=== PATIENT | male | born 1960 | race Caucasian/White ===

== ENCOUNTER 2019-07-26 17:40 | Inpatient (IN) | payer MEDICARE, OTHER ==
[~2019-07-26] VITALS: Ht 185.4 cm; Wt 102.1 kg
[~2019-07-26 17:40] MED LIST: ACETAMINOPHEN-1 EAC1 PO; CIPROFLOXACIN750 MG PO; DUONEB 2.5-0.5 M3 ML INH; FLAGYL500 MG PO; FLEXERIL PO; NEBULIZER MISCELL; NORCO 7.5-3251 EACH PO; SERTRALINE HCL50 MG PO; VENTOLIN HFA 1818 GM INH
[2019-07-26 17:45] VITALS: BP 137/89
[2019-07-26] MEDS ORDERED: SERTRALINE HCL100 MG PO (18:17)
[2019-07-26] MEDS ORDERED: MINIPRESS2 MG PO (18:17)
[2019-07-26] MEDS ORDERED: CLONAZEPAM 0.50.5 M1 PO (18:17)
[2019-07-26 18:26] LABS: ABSOLUTE EOSINOPHILS 0.2 thou/uL (0.0-0.7); ABSOLUTE LYMPHOCYTES 1.4 thou/uL (0.8-5.3); ABSOLUTE MONOCYTES 0.3 thou/uL (0.0-1.2); ABSOLUTE NEUTROPHILS 4.6 thou/uL (1.6-8.1); BASOPHILS 0.7 %; EOSINOPHILS 2.8 %; HEMATOCRIT 43.8 % (42.0-52.0); HEMOGLOBIN 15.3 gm/dL (14.0-18.0); LYMPHOCYTES 21.9 %; MCH 29.4 pg (26.0-34.0); MCHC 34.8 g/dL (28.0-37.0); MCV 84.6 fL (80.0-100.0); MONOCYTES 3.8 %; MPV 8.5 fl. (7.2-11.1); NUCLEATED RBCS 0 /100WBC; PLATELET COUNT* 144 thou/uL (150-400); POLYS 70.8 %; RBC 5.18 mil/uL (4.50-6.00); RDW-CV 14.1 % (10.5-14.5); WBC 6.6 thou/uL (4.0-11.0)
--- NOTE | 2019-07-26 18:30 | NUR ---
DR CELESTIN NEUROLOGY HERE AT BEDSIDE EXAMING PT
[2019-07-26 18:34] LABS: CALCIUM 8.4 mg/dL (8.5-10.1); CREATININE 1.1 mg/dL (0.6-1.3); POTASSIUM 3.6 mmol/L (3.5-5.1)
[2019-07-26 18:39] LABS: ALBUMIN 3.7 g/dL (3.4-5.0); TOTAL BILIRUBIN 0.8 mg/dL (<0.1-1.0); TOTAL PROTEIN 6.9 g/dL (6.4-8.2)
[2019-07-26 19:49] LABS: URINE BILIRUBIN NEGATIVE (Negative); URINE BLOOD NEGATIVE (Negative); URINE CLARITY CLEAR; URINE COLOR YELLOW; URINE GLUCOSE-RANDOM NEGATIVE (Negative); URINE KETONES NEGATIVE (Negative); URINE LEUKOCYTES NEGATIVE (Negative); URINE NITRITE NEGATIVE (Negative); URINE PROTEIN NEGATIVE (Negative); URINE SPECIFIC GRAVITY 1.015 (1.005-1.030); URINE UROBILINOGEN 0.2 E.U./dl (0.2-1.0)
--- NOTE | 2019-07-26 21:30 | NUR ---
PT ON MRI TABLE UNALBLE TO DO TEMPERATUREE AND NIH SCALE FOR THIS SET OF VS.
[2019-07-26 23:15] VITALS: BP 161/84
[2019-07-26 23:40] VITALS: BP 162/90
[2019-07-27] VITALS (45 sets, daily range): BP systolic 114–168; BP diastolic 64–119
--- NOTE | 2019-07-27 09:50 | NUR ---
UPDATED ON PLAN OF CARE.
--- NOTE | 2019-07-27 11:05 | NUR ---
PATIENT C/O LYNN EARLY THIS AM TO NIGHT RN. LABETOLOL GIVEN. PATIENT SAID LYNN IMPROVED 1-2. DENIES EVER HAVING HEADACHES BUT SAYS HE TAKES EXCEDRIN IF HE DOES. HE THOUGHT COFFEE WOULD HELP AND WAS CONCERNED IT WAS BECAUSE HE HADN'T TAKEN HIS MINIPRESS. COFFEE GIVEN. LYNN NO CHANGE BUT CONTINUES TO SAY IT IS VERY MINOR. DR. CELESTIN NOTIFIED. PATIENT LEFT FOR MRI AT 1105.
--- NOTE | 2019-07-27 11:45 | NUR ---
RETURNED FROM MRI. AT 1230 CALLED MRI TO ASK ABOUT RESULTS. DR. CELESTIN CALLED AT 1235. NO RESULTS AT THIS TIME.
--- NOTE | 2019-07-27 12:43 | EKG ---
[place] [address] ELECTROCARDIOGRAM REPORT Name: AB HUNTER Room: [address] ADM IN .R.#: [id number] Admission: 07/26/19 Attend Phys: Bucky Mclaughlin, Discharge: Date of : 60 Date of Service: 07/26/19 1816 Report #: [id number] THIS REPORT FOR: //name// [facility] ED Test Date: 2019-07-26 Test Time: 18:16:42 Pat Name: AB HUNTER Department: Room: [facility] Gender: M Attendant [employer]: RS : 1960 Requested By: Roland Bailey Order Number: [id number] MD: David Beckwith Measurements Intervals [place] Rate: 63 P: 68 NV: 181 QRS: 66 QRSD: 102 T: 90 QT: 416 QTc: 426 Interpretive Statements Sinus rhythm Nonspecific T abnormalities, lateral leads Compared to ECG 08/18/2013 18:16:59 T-wave abnormality now present Electronically Signed On 07-27-2019 12:42:41 CDT by David Beckwith [email or web address] <ELECTRONICALLY SIGNED> By: David Beckwith MD, FACC 07/27/19 1242 1816 1816 David Beckwith MD, [facility] /EPI
--- NOTE | 2019-07-27 13:24 | 2DMMODE ---
[place] [address] 2 D/M-MODE ECHOCARDIOGRAM Name: AB HUNTER Room: [address] ADM IN .R.#: [id number] Admission: 07/26/19 Attend Phys: Bucky Mclaughlin, Discharge: Date of : 60 Date of Service: 07/27/19 1322 Report #: [id number] THIS REPORT FOR: cc: FAM - No family physician/PCP FAM - No family physician/PCP Michael Cross MD [facility] ~ APPROVED REPORT Study performed: 07/27/2019 10:11:41 EXAM: Comprehensive 2D, Doppler, and color-flow Echocardiogram Patient Location: In-Patient Room #: [facility] [place] Status: routine BSA: 2.26 HR: 60 bpm BP: 160/97 mmHg Rhythm: NSR Other Information Study Quality: Good Indications CVA/TIA Echo Enhancing Agent Indication: Rule out Shunt Agent(s) / Amount(s) Used: Agitated Saline 10 cc 2D Dimensions IVSd: 12.30 (7-11mm) LVOT Diam: 22.89 (18-24mm) LVDd: 46.51 mm PWd: 9.92 (7-11mm) Ascending Ao: 37.79 (22-36mm) LVDs: 28.60 (25-40mm) Aortic Root: 41.06 mm Volumes Left Atrial Volume (Systole) LA ESV Index: 26.70 mL/m2 Aortic Valve AoV Peak Austin.: 1.30 m/s AO Peak Gr.: 6.78 mmHg LVOT Max P.91 mmHg AO Mean Gr.: 3.60 mmHg LVOT Mean P.62 [place] [address] 2 D/M-MODE ECHOCARDIOGRAM Name: AB HUNTER Room: [address] IN .R.#: [id number] Admission: 07/26/19 Attend Phys: Bucky Mclaughlin, Discharge: Date of : 60 Date of Service: 07/27/19 1322 Report #: [id number] LVOT Max V: 1.31 m/s AO V2 VTI: 26.61 cm LVOT Mean V: 0.72 m/s MATHEW (VTI): 4.01 cm2 LVOT V1 VTI: 25.91 cm Mitral Valve E/A Ratio: 1.05 MV Decel. Time: 217.55 ms MV E Max Austin.: 0.81 m/s MV PHT: 63.09 ms MVA (PHT): 3.49 cm2 TDI E/Lateral E': 7.36 E/Medial E': 6.75 Medial E' Austin.: 0.12 m/s Lateral E' Austin.: 0.11 m/s Pulmonary Valve PV Peak Austin.: 0.96 m/s PV Peak Gr.: 3.71 mmHg Tricuspid Valve RAP Estimate: 5.00 mmHg TR Peak Gr.: 22.26 mmHg RVSP: 27.00 mmHg PA Pressure: 27.00 mmHg Left Ventricle The left ventricle is normal size. There is normal LV segmental wall motion. There is normal left ventricular wall thickness. Left ventricular systolic function is normal. LVEF is 60-65%. The left ventricular diastolic function is normal. Right Ventricle The right ventricle is normal size. The right ventricular systolic function is normal. Atria The left atrium size is normal. The interatrial septum is intact with no evidence for an atrial septal defect. The right atrium size is normal. Aortic Valve The aortic valve is normal in structure. No aortic regurgitation is present. There is no aortic valvular stenosis. Mitral Valve The mitral valve is normal in structure. There is no mitral valve regurgitation noted. No evidence of [place] [address] 2 D/M-MODE ECHOCARDIOGRAM Name: AB HUNTER Room: [address] IN ..#: [id number] Admission: 07/26/19 Attend Phys: Bucky Mclaughlin, Discharge: Date of : 60 Date of Service: 07/27/19 1322 Report #: [id number] Tricuspid Valve The tricuspid valve is normal in structure. Trace tricuspid regurgitation. No pulmonary hypertension. Pulmonic Valve The pulmonary valve is normal in structure. There is no pulmonic valvular regurgitation. Great Vessels The aortic root is normal in size. IVC is normal in size and collapses >50% with inspiration. Pericardium There is no pericardial effusion. <Conclusion> The left ventricle is normal size. There is normal left ventricular wall thickness. Left ventricular systolic function is normal. LVEF is 60-65%. The left ventricular diastolic function is normal. The interatrial septum is intact with no evidence for an atrial septal defect. Trace tricuspid regurgitation. No pulmonary hypertension. IVC is normal in size and collapses >50% with inspiration. <ELECTRONICALLY SIGNED> By: Michael Cross MD, FACC 07/27/19 1322 132 132 Michael Cross MD, FACC /INF
--- NOTE | 2019-07-27 13:30 | NUR ---
DR FU CALLED RESULTS OF MRI. PAGED DR. CELESTIN AND NOTIFIED. NO PLANS FOR FURTHER CT OR MRI TONIGHT.
--- NOTE | 2019-07-27 16:33 | NUR ---
Pt working with PT when CM went to assess.
[2019-07-27 16:34] LABS: ALBUMIN 3.5 g/dL (3.4-5.0); CREATININE 1.1 mg/dL (0.6-1.3); TOTAL BILIRUBIN 0.8 mg/dL (<0.1-1.0); TOTAL PROTEIN 6.6 g/dL (6.4-8.2)
--- NOTE | 2019-07-27 19:19 | NUR ---
PROGRESSING TOWARDS GOALS. NIH 2. VSS. UP AD KENY. DENIES PAIN.
[2019-07-28 03:07] LABS: GLYCOHEMOGLOBIN (HGB A1C) 5.8 % (4.8-5.6)
--- NOTE | 2019-07-28 03:22 | NUR ---
RECEIVED REPORT AND ASSUMED CARE AT 1900. BP SLIGHTLY ELEVATED, OTHERWISE VSS. PT SBP NOT ELEVATED ENOUGH FOR PRN MEDICATION. MONITORED THROUGH SHIFT. WNL AT NEXT CHECK. PT DENIES COMPLAINTS OF PAIN, ASSESSMENT COMPLETED CHARTED. PT UP AD KENY IN ROOM, ON RA. BED LOCKED IN LOWEST POSITION, CALL LIGHT WITHIN REACH.
[2019-07-28 04:00] VITALS: BP 138/99
[2019-07-28 04:22] LABS: CHOLESTEROL 204 mg/dL (<200); HDL CHOLESTEROL 21 mg/dL (>40); TC:HDL 9.7 Ratio (Not establshd); TRIGLYCERIDE 430 mg/dL (<150); VLDL 86 mg/dL (<40)
[2019-07-28 04:24] LABS: SERUM ASSESSMENT Slight Lipemia
[2019-07-28 08:00] VITALS: BP 166/93
[2019-07-28] MEDS ORDERED: ASA81BEC PO (11:20)
[2019-07-28] MEDS ORDERED: LIPITOR40 MG PO (11:21)
[2019-07-28 11:22] VITALS: BP 138/99
--- NOTE | 2019-07-28 11:23 | NUR ---
CM COMPLETED ASSESSMENT TO DISCUSS D/C PLAN. PT A&O. ACTIVE AND INDEPENDENT. LIVES AT HOME W/FAMILY. FAMILY IS "VERY GOOD" SUPPORT. PT HAS 0 DMES. DENIES HX W/SNF. HAS USED HH IN THE PAST BUT HAS NO RECOLECTION OF WHICH AGENCY. CM TO REMAIN AVIAL TO ASSIT.
--- NOTE | 2019-07-28 12:50 | NUR ---
PT UP ALL MORNING AMBULATING AROUND ROOM. ALL EXTREMITIES EQUAL, ONLY SLIGHT LEFT SIDED MOUTH DROOPING WHICH IS CONSISTENT WITH WHAT THE FORMER NURSES HAVE FOUND. DISCHARGE ORDERS WERE RECEIVED. PT NOTIFIED. TELE AND PIV WERE DISCONTINUED. DISCHARGE ORDERS REVIEWED WITH PT. PT AMBULATED TO CAR ACCOMPANIED BY RN.
--- NOTE | 2019-07-28 15:53 | NUR ---
Cardiac Rehab. Patient discharged prior to education. Education materials mailed to patient's home.
== END 2019-07-28 12:00 | disposition home or self-care (01) | DRG 62 ==
LOC: M.ERS 17:40 → M.ICU 22:54 → M.TBA-ER 22:54 → M.ICU 23:13 → M.2W 07-27 17:06
PROVIDERS: Emergency Medicine; ADMIT Internal Medicine
DX: G45.9 Transient cerebral ischemic attack, unspecified (principal); R47.01 Aphasia; F32.9 Major depressive disorder, single episode, unspecified; K57.90 Diverticulosis of intestine, part unspecified, without perforation or abscess without bleeding; F17.210 Nicotine dependence, cigarettes, uncomplicated; F12.90 Cannabis use, unspecified, uncomplicated; Z96.653 Presence of artificial knee joint, bilateral; E66.9 Obesity, unspecified; Z68.29 Body mass index [BMI] 29.0-29.9, adult; F41.9 Anxiety disorder, unspecified; Z90.49 Acquired absence of other specified parts of digestive tract